=== PATIENT | male | born 1950 | race Caucasian/White ===

== ENCOUNTER 2018-01-02 22:48 | Observation (INO) ==
[2018-01-02 23:26] LABS: Basophils % 0.3 %; Hematocrit 36.7 % (37.5-50.1); Hemoglobin 11.9 g/dL (12.9-16.9); Immature Granulocytes % 0.4 % (0-4); Lymphocytes % 13.2 %; Mean Corpuscular HGB Conc 32.4 g/dL (31.6-35.5); Mean Corpuscular Hemoglobin 29.6 pg (28.0-33.3); Mean Corpuscular Volume 91.3 fL (83.0-100.0); Mean Platelet Volume 9.5 fL (9.4-12.4); Monocytes # 0.7 K/mcL (0.0-1.3); Neutrophils # 5.5 K/mcL (1.6-8.9); Platelet Count 112 K/mcL (140-400); Red Blood Count 4.02 M/mcL (4.19-5.50); Red Cell Distribution Width 13.6 % (11.5-14.5); Segmented Neutrophils % 76.1 %
--- NOTE | 2018-01-02 23:29 | Emergency Department Note ---
Disposition Clinical Impression: VIGNESH (acute kidney injury), Fever of undetermined origin Dilantin toxicity Qualifiers: Encounter type: initial encounter Injury intent: accidental or unintentional Qualified Code(s): T42.0X1A - Poisoning by hydantoin derivatives, accidental (unintentional), initial encounter Disposition: Admitted As Inpatient Condition: Fair General Adult HPI - General Chief complaint: ED Fall Stated complaint: Fall Time Seen by Provider: 01/02/18 22:52 Source: patient Limitations: no limitations Nursing Notes Reviewed: Yes Vital Signs Reviewed: Yes - History of Present Illness HPI Narrative: Patient is a 67-year-old male with history of epilepsy who presents the emergency department status post fall. 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 Patient denies hitting his head or any loss of consciousness. He states he did not have a seizure and has been taking his medication as directed. Otherwise has no complaints including headache, nausea, vomiting, abdominal pain, chest pain, shortness of breath, dysuria, hematuria, dizziness, numbness, tingling, fever, chills, or weakness. Pain Scale: 0 - Related Data Allergies Allergy/AdvReac Type Severity Reaction Status Date / Time No Known Allergies Allergy Verified 01/02/18 22:53 Constitutional: Denies: fever, chills, weakness Cardiovascular: Denies: chest pain, palpitations, dyspnea on exertion, orthopnea, edema, syncope Respiratory: Denies: cough, dyspnea, wheezes, hemoptysis, sputum production Gastrointestinal: Denies: abdominal pain, nausea, vomiting, diarrhea, constipation Genitourinary: Denies: urgency, dysuria, frequency, hematuria Musculoskeletal: Denies: back pain, neck pain, arthralgia, myalgia Neurological: Reports: confusion. Denies: headache, weakness, numbness, paresthesias, abnormal gait, vertigo Psychiatric: Denies: anxiety, depression Endocrine: Denies: fatigue Past Medical History - Past Medical History Attestation: Yes The following information was validated with the patient. Source: patient Medical history: Reports: hypertension, seizures, other Psychiatric history: Reports: no psych history - Social History Smoking Status: Former smoker Smokeless Tobacco Status: No Alcohol use: Reports: none Drug use: Reports: none Physical Exam - General Limitations: no limitations, altered mental status General appearance: alert - Head Head exam: atraumatic, normocephalic - Eye Eye exam: Present: normal appearance, PERRL, EOMI. Absent: scleral icterus, conjunctival injection - ENT ENT exam: normal exam - Neck Neck exam: Present: trachea midline. Absent: tenderness, meningismus - Chest Chest inspection: Present: normal inspection, symmetric chest wall rise. Absent: tenderness - Respiratory Respiratory exam: Present: normal lung sounds bilaterally. Absent: respiratory distress, wheezes, stridor, accessory muscle use - Cardiovascular Cardiovascular exam: Present: regular rate, normal rhythm, normal heart sounds - Abdominal Exam Abdominal exam: Present: soft, Non-Tender. Absent: distention, guarding, rebound, rigidity - Extremities Exam Extremities exam: Present: normal inspection. Absent: pedal edema - Back Exam Back exam: Present: normal inspection - Neurological Exam Neurological exam: Present: alert - Expanded Neurological Exam Patient oriented to: Present: place, time Speech: Present: fluid speech Cranial nerves: EOM function (II, III, IV, ): Normal, facial sensation (V): Normal, facial palsy (VII): Normal, gag reflex (IX): Normal, spinal accessory function (XI): Normal, tongue deviation (XII): Normal Cerebellar function: finger to nose: Normal Motor strength - LUE: 5/5 Motor strength - RUE: 5/5 Motor strength - LLE: 5/5 Motor strength - RLE: 5/5 Coma Scale Eye Opening: Spontaneous Coma Scale Motor Response: Obeys Commands Coma Scale Verbal Response: Oriented Coma Scale Total: 15 - Expanded Psychiatric Exam Expanded psych exam: Present: other (labile mood, intermittently joking and laughing then crying without explanation) - Skin Skin exam: Present: warm, dry, intact Course Vital Signs Temperature 102.8 F H 01/02/18 22:53 Pulse Rate 93 01/02/18 22:53 Respiratory Rate 20 01/02/18 22:53 Blood Pressure 99/60 01/02/18 22:53 O2 Sat by Pulse Oximetry 98 01/02/18 22:53 Temperature 101 F H 01/03/18 02:49 Pulse Rate 91 01/03/18 02:49 Respiratory Rate 18 01/03/18 02:49 Blood Pressure 113/68 01/03/18 02:49 O2 Sat by Pulse Oximetry 95 01/03/18 02:50 Oxygen Delivery Oxygen Delivery Room Air Medical Decision Making - MDM Narrative Medical decision making narrative: 67-year-old male with history of epilepsy. On initial exam the patient is confused and patient's family confirms that he is not at his baseline mentation. He is also febrile to 102. Given his confusion obtained a CT head as well as lab work including CBC, BMP, LFTs, EKG, urinalysis, chest XR, lactate and Dila ntin level. CBCs shows slight anemia, elevation this creatinine to 1.5 with a normal lactate. Urinalysis does not show acute infection. EKG unremarkable. Chest x-ray also reveals no acute process. CT head negative for acute bleed or ischemic changes. Dilantin level elevated at 30. 1 L fluid bolus given along with Tylenol. Given his continued altered mental status as well as acute kidney injury and fever of unknown source will admit the patient for continued evaluation. Blood cultures obtained and pending. Discussed case with Dr. Vidal, hospitalist who will admit the patient. Patient agrees with and understands course of treatment plan including plan for admission. All questions answered. - Medical Records Medical records reviewed: Yes I reviewed the patient's medical records. - Lab Data Lab results reviewed: Yes I reviewed the patient's lab results. Result diagrams: 01/02/18 23:08 01/02/18 23:08 Lab Results 01/02/18 01/02/18 01/02/18 Range/Units 23:08 23:08 23:08 WBC 7.2 (4.3-11.1) K/mcL RBC 4.02 L (4.19-5.50) M/mcL Hgb 11.9 L (12.9-16.9) g/dL Hct 36.7 L (37.5-50.1) % MCV 91.3 (83.0-100.0) fL MCH 29.6 (28.0-33.3) pg MCHC 32.4 (31.6-35.5) g/dL RDW 13.6 (11.5-14.5) % Plt Count 112 L (140-400) K/mcL MPV 9.5 (9.4-12.4) fL Immature Gran % 0.4 (0-4) % Seg Neutrophils % 76.1 % Lymphocytes % 13.2 % Monocytes % 10.0 % Eosinophils % 0.0 % Basophils % 0.3 % Neutrophils # 5.5 (1.6-8.9) K/mcL Lymphocytes # 1.0 (0.6-4.6) K/mcL Monocytes # 0.7 (0.0-1.3) K/mcL Eosinophils # 0.0 (0.0-0.6) K/mcL Basophils # 0.0 (0.0-0.2) K/mcL Sodium 135 L (136-145) mEq/L Potassium 4.6 (3.5-5.1) mEq/L Chloride 105 (98-107) mEq/L Carbon Dioxide 23 (23-29) mEq/L BUN 36 H (8-23) mg/dL Creatinine 1.51 H (0.70-1.30) mg/dL Est GFR ( Amer) 56 L (> 60) Est GFR (Non-Af Amer) 46 L (> 60) BUN/Creatinine Ratio 24 (6-26) Glucose 172 H (70-105) mg/dL Calculated Osmolality 292 (280-300) Lactic Acid 1.1 (0.5-2.2) mmol/L Calcium 8.3 L (8.6-10.3) mg/dL Total Bilirubin 0.4 (0.3-1.0) mg/dL Direct Bilirubin 0.1 (0.0-0.2) mg/dL Indirect Bilirubin 0.3 (0.0-1.2) mg/dL AST 22 (13-39) Units/L ALT 17 (7-52) Units/L Alkaline Phosphatase 103 (34-104) Units/L Creatine Kinase 246 H (30-223) Units/L Serum Total Protein 7.1 (6.4-8.9) g/dL Albumin 4.0 (3.5-5.7) g/dL Globulin 3.1 (2.4-3.5) g/dL Albumin/Globulin Ratio 1.3 (1.1-2.2) Urine Color (Yellow) Urine Clarity (Clear) Urine pH (5.0-8.0) pH Units Ur Specific [place] (1.010-1.025) Urine Protein (Neg-Trace) mg/dL Urine Glucose (UA) (Normal) mg/dL Urine Ketones (Negative) mg/dL Urine Blood (Negative) Urine Nitrite (Negative) Urine Bilirubin (Negative) Urine Urobilinogen (Normal) mg/dL Ur Leukocyte Esterase (Negative) Urine Microscopic RBC (0-3) per hpf Urine Microscopic WBC (0-3) per hpf Ur Squamous Epith Cells (None-Few) per lpf Urine Bacteria (None-Few) per hpf Hyaline Casts (None-Few) per lpf Ur Culture Indicated? (NO) Phenytoin 30.9 H (10.0-20.0) mcg/mL 01/03/18 Range/Units 00:33 WBC (4.3-11.1) K/mcL RBC (4.19-5.50) M/mcL Hgb (12.9-16.9) g/dL Hct (37.5-50.1) % MCV (83.0-100.0) fL MCH (28.0-33.3) pg MCHC (31.6-35.5) g/dL RDW (11.5-14.5) % Plt Count (140-400) K/mcL MPV (9.4-12.4) fL Immature Gran % (0-4) % Seg Neutrophils % % Lymphocytes % % Monocytes % % Eosinophils % % Basophils % % Neutrophils # (1.6-8.9) K/mcL Lymphocytes # (0.6-4.6) K/mcL Monocytes # (0.0-1.3) K/mcL Eosinophils # (0.0-0.6) K/mcL Basophils # (0.0-0.2) K/mcL Sodium (136-145) mEq/L Potassium (3.5-5.1) mEq/L Chloride (98-107) mEq/L Carbon Dioxide (23-29) mEq/L BUN (8-23) mg/dL Creatinine (0.70-1.30) mg/dL Est GFR ( Amer) (> 60) Est GFR (Non-Af Amer) (> 60) BUN/Creatinine Ratio (6-26) Glucose (70-105) mg/dL Calculated Osmolality (280-300) Lactic Acid (0.5-2.2) mmol/L Calcium (8.6-10.3) mg/dL Total Bilirubin (0.3-1.0) mg/dL Direct Bilirubin (0.0-0.2) mg/dL Indirect Bilirubin (0.0-1.2) mg/dL AST (13-39) Units/L ALT (7-52) Units/L Alkaline Phosphatase (34-104) Units/L Creatine Kinase (30-223) Units/L Serum Total Protein (6.4-8.9) g/dL Albumin (3.5-5.7) g/dL Globulin (2.4-3.5) g/dL Albumin/Globulin Ratio (1.1-2.2) Urine Color Yellow (Yellow) Urine Clarity Clear (Clear) Urine pH 5.0 (5.0-8.0) pH Units Ur Specific [place] 1.026 H (1.010-1.025) Urine Protein Negative (Neg-Trace) mg/dL Urine Glucose (UA) Normal (Normal) mg/dL Urine Ketones Negative (Negative) mg/dL Urine Blood Trace H (Negative) Urine Nitrite Negative (Negative) Urine Bilirubin Negative (Negative) Urine Urobilinogen Normal (Normal) mg/dL Ur Leukocyte Esterase Negative (Negative) Urine Microscopic RBC 3-5 H (0-3) per hpf Urine Microscopic WBC 0-3 (0-3) per hpf Ur Squamous Epith Cells Few (None-Few) per lpf Urine Bacteria None Seen (None-Few) per hpf Hyaline Casts None Seen (None-Few) per lpf Ur Culture Indicated? NO (NO) Phenytoin (10.0-20.0) mcg/mL - Radiology Data Radiology results reviewed: Yes I reviewed the patient's radiology results. Chest X-Ray 01/02/18 23:06 IMPRESSION: No acute disease. D/ / Shmuel Horne MD / Shmuel Horne MD Interpreting Provider: Shmuel Horen MD Head CT 01/02/18 23:06 IMPRESSION: No acute intracranial abnormality. Mild chronic small vessel ischemic disease. Small old left cerebellar remote lacunar infarct. D/ / Baljit Sánchez / Baljit Sessions Interpreting Provider: Baljit Sessions - EKG Data EKG #1 EKG attestation: Yes I reviewed and interpreted this EKG. EKG results narrative: Normal sinus rhythm rate of 92. Irritable, MT interval 219. QRS 96 QT 340 QTC 421. Left axis deviation. Left ventricular hypertrophy. T-wave inversions in leads V3 through V6 without evidence of ST elevation. No prior EKG available for comparison.
[2018-01-02] MEDS ORDERED: 0.9 % Sodium Chloride 1,000 ML IVC ONE (23:40)
[2018-01-02 23:43] LABS: Albumin/Globulin Ratio 1.3 (1.1-2.2); Bilirubin,Direct 0.1 mg/dL (0.0-0.2); Bilirubin,Indirect 0.3 mg/dL (0.0-1.2); Bilirubin,Total 0.4 mg/dL (0.3-1.0); Calcium 8.3 mg/dL (8.6-10.3); Globulin 3.1 g/dL (2.4-3.5); Potassium 4.6 mEq/L (3.5-5.1); Total Protein 7.1 g/dL (6.4-8.9)
[2018-01-02 23:53] LABS: Phenytoin (Dilantin) 30.9 mcg/mL (10.0-20.0)
[2018-01-03 00:41] LABS: Bilirubin,Urine Negative (Negative); Blood,Urine Trace (Negative); Clarity,Urine Clear (Clear); Color,Urine Yellow (Yellow); Glucose,Urine (UA) Normal (Normal); Ketones,Urine Negative (Negative); Leukocyte Esterase,Urine Negative (Negative); Nitrite,Urine Negative (Negative); Protein,Urine Negative (Neg-Trace); Specific Gravity,Urine 1.026 (1.010-1.025); Urobilinogen,Urine Normal (Normal)
[2018-01-03 00:42] LABS: Bacteria,Urine None Seen per hpf (None-Few); Hyaline Casts,Urine None Seen per lpf (None-Few); Squamous Epithelial Cell,Urine Few per lpf (None-Few); WBC,Urine 0-3 per hpf (0-3)
--- NOTE | 2018-01-03 00:43 | Emergency Department Note ---
Disposition Clinical Impression: VIGNESH (acute kidney injury), Fever of undetermined origin Dilantin toxicity Qualifiers: Encounter type: initial encounter Injury intent: accidental or unintentional Qualified Code(s): T42.0X1A - Poisoning by hydantoin derivatives, accidental (unintentional), initial encounter Disposition: Admitted As Inpatient Condition: Fair General Adult HPI - General Chief complaint: ED Fall Stated complaint: Fall Time Seen by Provider: 01/02/18 22:52 Source: patient Limitations: no limitations, altered mental status Nursing Notes Reviewed: Yes Vital Signs Reviewed: Yes - History of Present Illness Pain Scale: 0 - Related Data Allergies Allergy/AdvReac Type Severity Reaction Status Date / Time No Known Allergies Allergy Verified 01/02/18 22:53 Constitutional: Denies: fever, chills, weakness Cardiovascular: Denies: chest pain, palpitations, dyspnea on exertion, orthopnea, edema, syncope Respiratory: Denies: cough, dyspnea, wheezes, hemoptysis, sputum production Gastrointestinal: Denies: abdominal pain, nausea, vomiting, diarrhea, constipation Genitourinary: Denies: urgency, dysuria, frequency, hematuria Musculoskeletal: Denies: back pain, neck pain, arthralgia, myalgia Neurological: Reports: confusion. Denies: headache, weakness, numbness, paresthesias, abnormal gait, vertigo Psychiatric: Denies: anxiety, depression Endocrine: Denies: fatigue Past Medical History - Past Medical History Medical history: Reports: hypertension, seizures, other Psychiatric history: Reports: no psych history - Social History Smoking Status: Former smoker Smokeless Tobacco Status: No Alcohol use: Reports: none Drug use: Reports: none Physical Exam - General Limitations: no limitations, altered mental status General appearance: alert Course Vital Signs Temperature 102.8 F H 01/02/18 22:53 Pulse Rate 93 01/02/18 22:53 Respiratory Rate 20 01/02/18 22:53 Blood Pressure 99/60 01/02/18 22:53 O2 Sat by Pulse Oximetry 98 01/02/18 22:53 Temperature 101.7 F H 01/03/18 03:46 Pulse Rate 87 01/03/18 03:46 Respiratory Rate 17 01/03/18 03:46 Blood Pressure 112/67 01/03/18 03:46 O2 Sat by Pulse Oximetry 95 01/03/18 03:46 Oxygen Delivery Oxygen Delivery Room Air Medical Decision Making - Medical Records Medical records reviewed: Yes I reviewed the patient's medical records. - Lab Data Lab results reviewed: Yes I reviewed the patient's lab results. Result diagrams: 01/02/18 23:08 01/02/18 23:08 Lab Results 01/02/18 01/02/18 01/02/18 Range/Units 23:08 23:08 23:08 WBC 7.2 (4.3-11.1) K/mcL RBC 4.02 L (4.19-5.50) M/mcL Hgb 11.9 L (12.9-16.9) g/dL Hct 36.7 L (37.5-50.1) % MCV 91.3 (83.0-100.0) fL MCH 29.6 (28.0-33.3) pg MCHC 32.4 (31.6-35.5) g/dL RDW 13.6 (11.5-14.5) % Plt Count 112 L (140-400) K/mcL MPV 9.5 (9.4-12.4) fL Immature Gran % 0.4 (0-4) % Seg Neutrophils % 76.1 % Lymphocytes % 13.2 % Monocytes % 10.0 % Eosinophils % 0.0 % Basophils % 0.3 % Neutrophils # 5.5 (1.6-8.9) K/mcL Lymphocytes # 1.0 (0.6-4.6) K/mcL Monocytes # 0.7 (0.0-1.3) K/mcL Eosinophils # 0.0 (0.0-0.6) K/mcL Basophils # 0.0 (0.0-0.2) K/mcL Sodium 135 L (136-145) mEq/L Potassium 4.6 (3.5-5.1) mEq/L Chloride 105 (98-107) mEq/L Carbon Dioxide 23 (23-29) mEq/L BUN 36 H (8-23) mg/dL Creatinine 1.51 H (0.70-1.30) mg/dL Est GFR ( Amer) 56 L (> 60) Est GFR (Non-Af Amer) 46 L (> 60) BUN/Creatinine Ratio 24 (6-26) Glucose 172 H (70-105) mg/dL Calculated Osmolality 292 (280-300) Lactic Acid 1.1 (0.5-2.2) mmol/L Calcium 8.3 L (8.6-10.3) mg/dL Total Bilirubin 0.4 (0.3-1.0) mg/dL Direct Bilirubin 0.1 (0.0-0.2) mg/dL Indirect Bilirubin 0.3 (0.0-1.2) mg/dL AST 22 (13-39) Units/L ALT 17 (7-52) Units/L Alkaline Phosphatase 103 (34-104) Units/L Creatine Kinase 246 H (30-223) Units/L Serum Total Protein 7.1 (6.4-8.9) g/dL Albumin 4.0 (3.5-5.7) g/dL Globulin 3.1 (2.4-3.5) g/dL Albumin/Globulin Ratio 1.3 (1.1-2.2) Urine Color (Yellow) Urine Clarity (Clear) Urine pH (5.0-8.0) pH Units Ur Specific [place] (1.010-1.025) Urine Protein (Neg-Trace) mg/dL Urine Glucose (UA) (Normal) mg/dL Urine Ketones (Negative) mg/dL Urine Blood (Negative) Urine Nitrite (Negative) Urine Bilirubin (Negative) Urine Urobilinogen (Normal) mg/dL Ur Leukocyte Esterase (Negative) Urine Microscopic RBC (0-3) per hpf Urine Microscopic WBC (0-3) per hpf Ur Squamous Epith Cells (None-Few) per lpf Urine Bacteria (None-Few) per hpf Hyaline Casts (None-Few) per lpf Ur Culture Indicated? (NO) Phenytoin 30.9 H (10.0-20.0) mcg/mL 01/03/18 Range/Units 00:33 WBC (4.3-11.1) K/mcL RBC (4.19-5.50) M/mcL Hgb (12.9-16.9) g/dL Hct (37.5-50.1) % MCV (83.0-100.0) fL MCH (28.0-33.3) pg MCHC (31.6-35.5) g/dL RDW (11.5-14.5) % Plt Count (140-400) K/mcL MPV (9.4-12.4) fL Immature Gran % (0-4) % Seg Neutrophils % % Lymphocytes % % Monocytes % % Eosinophils % % Basophils % % Neutrophils # (1.6-8.9) K/mcL Lymphocytes # (0.6-4.6) K/mcL Monocytes # (0.0-1.3) K/mcL Eosinophils # (0.0-0.6) K/mcL Basophils # (0.0-0.2) K/mcL Sodium (136-145) mEq/L Potassium (3.5-5.1) mEq/L Chloride (98-107) mEq/L Carbon Dioxide (23-29) mEq/L BUN (8-23) mg/dL Creatinine (0.70-1.30) mg/dL Est GFR ( Amer) (> 60) Est GFR (Non-Af Amer) (> 60) BUN/Creatinine Ratio (6-26) Glucose (70-105) mg/dL Calculated Osmolality (280-300) Lactic Acid (0.5-2.2) mmol/L Calcium (8.6-10.3) mg/dL Total Bilirubin (0.3-1.0) mg/dL Direct Bilirubin (0.0-0.2) mg/dL Indirect Bilirubin (0.0-1.2) mg/dL AST (13-39) Units/L ALT (7-52) Units/L Alkaline Phosphatase (34-104) Units/L Creatine Kinase (30-223) Units/L Serum Total Protein (6.4-8.9) g/dL Albumin (3.5-5.7) g/dL Globulin (2.4-3.5) g/dL Albumin/Globulin Ratio (1.1-2.2) Urine Color Yellow (Yellow) Urine Clarity Clear (Clear) Urine pH 5.0 (5.0-8.0) pH Units Ur Specific [place] 1.026 H (1.010-1.025) Urine Protein Negative (Neg-Trace) mg/dL Urine Glucose (UA) Normal (Normal) mg/dL Urine Ketones Negative (Negative) mg/dL Urine Blood Trace H (Negative) Urine Nitrite Negative (Negative) Urine Bilirubin Negative (Negative) Urine Urobilinogen Normal (Normal) mg/dL Ur Leukocyte Esterase Negative (Negative) Urine Microscopic RBC 3-5 H (0-3) per hpf Urine Microscopic WBC 0-3 (0-3) per hpf Ur Squamous Epith Cells Few (None-Few) per lpf Urine Bacteria None Seen (None-Few) per hpf Hyaline Casts None Seen (None-Few) per lpf Ur Culture Indicated? NO (NO) Phenytoin (10.0-20.0) mcg/mL - Radiology Data Radiology results reviewed: Yes I reviewed the patient's radiology results. Chest X-Ray 01/02/18 23:06 IMPRESSION: No acute disease. D/ / Shmuel Horne MD / Shmuel Horne MD Interpreting Provider: Shmuel Horne MD Head CT 01/02/18 23:06 IMPRESSION: No acute intracranial abnormality. Mild chronic small vessel ischemic disease. Small old left cerebellar remote lacunar infarct. D/ / Baljit Sánchez / Baljit Sánchez Interpreting Provider: Baljit Sánchez - EKG Data EKG #1 EKG attestation: Yes I reviewed and interpreted this EKG. EKG results narrative: EKG shows a normal sinus rhythm with ventricular rate of 92. Nonspecific ST and T-wave changes. Attestation Statement - Attestation Attestation: I, Luigi Brambila MD, personally evaluated this patient and discussed their management with the resident physician. I reviewed the resident's note and agree with the documented findings, medical decision making, and plan of care. 67-year-old male presents to the emergency department by EMS after he fell while at work this evening. 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 Tonight he lost his balance and fell twice while at work. He did not trip. He denies any injury from the fall. On arrival here in the emergency department the patient is awake and alert but is somewhat confused. When family arrived they report that he is deathly confused from his baseline. He also was found to be febrile on arrival. He was not aware he had a fever. He has no specific complaints. He denies any headache or earache or sore throat. No rash or stiff neck. No chest pain. No cough or shortness of breath. He denies any abdominal pain. No nausea or vomiting. No diarrhea. No GI bleed symptoms. No UTI symptoms. He denies any pain in the extremities. No back pain. On examination patient is a well-developed well-nourished elderly male in no acute distress. He is alert and cooperative and oriented but does seem somewhat confused. There is no cyanosis or diaphoresis. Head is atraumatic. There is mild lateral nystagmus. Neck is supple and nontender with full range of motion. Touches chin to chest without discomfort. Throat is clear with no injection or exudate and mucous membranes are moist. Chest is nontender to palpation. Breath sounds are clear and equal bilaterally. Heart regular rate and rhythm. Abdomen is soft and nontender with normal bowel sounds. No gross focal neurological deficits. Labs reviewed. Patient found to have Dilantin toxicity with a Dilantin level of 30. He also had some acute kidney injury with an increase in his creatinine to 1.51. Highest previous level was 1.31. Chest x-ray negative. Urinalysis negative. No source found for the fever which could possibly be related to the Dilantin toxicity. Head CT negative. The hospitalist, Dr. Oliva, was consulted and accepted admission of the patient.
[2018-01-03] MEDS ORDERED: Acetaminophen 325 MG TABLET PO ONE (01:01)
[2018-01-03] MEDS ORDERED: traMADol 50 MG TABLET PO PRN (02:49)
[2018-01-03] MEDS ORDERED: Ringers Solution, Lactated 1,000 ML IVC SCH (03:00)
--- NOTE | 2018-01-03 03:37 | Internal Med History&Physical ---
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 It is reported that he slipped on soap in the bathroom, falling backwards onto his buttocks but without hitting his head or suffering LOC. No seizure episode reported. He reports adherence with his medications. EMS was called as he did not feel well. In the ER, his noticed that he seemed a bit confused and not at his baseline mental status. In the ER he was noted persistently febrile >102F in spite of APAP given. Blood work done was grossly unrevealing other than a slight elevation in serum creatinine and a high phenytoin level. Head CT negative for acute processes. Blood cultures were obtained but no antibiotics started. Fluids were given and remained under monitoring. Due to the unclear etiology of fever, VIGNESH and altered mental status, it is decided he remain under observation. The patient reports feeling well although there might be an element of confabulation to this. He denies any complaints although his says he does not appear normal. He denies having chills, headache, dizziness, chest pain, dyspnea, sore throat, rhinorhea and abdominal pain. No recent travels. His reports that he fell down at home 3 days ago and 2 days ago were with a group of young children but none of whom appeared ill. Past Med Surg Social Fam HX - Past Medical History Medical history: hypertension, seizures, other Additional medical history: epilepsy Psychiatric history: no psych history - Past Surgical History Surgical History: no surgical history, non-contributory - Social History Smoking Status: Former smoker Smokeless Tobacco Status: No Alcohol use: none Drug use: none - Family History Father History Unknown: Yes Internal Medicine - H&P: Meds Allergy/AdvReac Type Severity Reaction Status Date / Time No Known Allergies Allergy Verified 01/02/18 22:53 All Systems PM: A 10-system review of systems was performed and is negative for pertinent findin gs except as documented above in the HPI. Family history obtained and found non-contributory. - Constitutional Vitals: Temp Pulse Resp BP Pulse Ox 101 F H 91 18 113/68 95 01/03/18 02:49 01/03/18 02:49 01/03/18 02:49 01/03/18 02:49 01/03/18 02:50 Exam: Vitals: Reviewed General: Well-developed and well-appearing in no acute distress. Speech occasionally in mumbles. Skin: Warm and supple. HEENT: Moist mucous membranes. No conjunctivae pallor. Right-sided horizontal nystagmus is present. EOMI. PERRLA. Neck: No lymphadenopathy. No JVD. No carotid bruits. No palpable thyroid. Chest: Normal thoracic expansion. Normal breath sounds. Clear to auscultation. Heart: Normal S1 & S2; rhythmic. No rubs or murmurs. Abdomen: soft and non-tender to palpation. No peritoneal reaction. Extremities: No clubbing, cyanosis or edema. No calf tenderness. Normal distal pulses. Neurological: Awake, alert and oriented to person, place and time. No focal deficits. No nuchal rigidity or any other signs of meningismus. Psych: Affect appropriate. Internal Med - H&P Results - Labs CBC & Chem 7: 01/02/18 23:08 01/02/18 23:08 Labs: Short CBC 01/02/18 Range/Units 23:08 WBC 7.2 (4.3-11.1) K/mcL Hgb 11.9 L (12.9-16.9) g/dL Hct 36.7 L (37.5-50.1) % Plt Count 112 L (140-400) K/mcL Neutrophils # 5.5 (1.6-8.9) K/mcL BMP 01/02/18 23:08 Sodium 135 L Potassium 4.6 Chloride 105 Carbon Dioxide 23 BUN 36 H Creatinine 1.51 H Glucose 172 H Calcium 8.3 L Liver Function 01/02/18 Range/Units 23:08 Total Bilirubin 0.4 (0.3-1.0) mg/dL Direct Bilirubin 0.1 (0.0-0.2) mg/dL AST 22 (13-39) Units/L ALT 17 (7-52) Units/L Alkaline Phosphatase 103 (34-104) Units/L Albumin 4.0 (3.5-5.7) g/dL Urine 01/03/18 Range/Units 00:33 Urine Color Yellow (Yellow) Urine Clarity Clear (Clear) Urine pH 5.0 (5.0-8.0) pH Units Ur Specific [place] 1.026 H (1.010-1.025) Urine Protein Negative (Neg-Trace) mg/dL Urine Glucose (UA) Normal (Normal) mg/dL - Impressions ITS Impressions Chest X-Ray 01/02/18 23:06 IMPRESSION: No acute disease. D/ / Shmuel Horne MD / Shmuel Horne MD Interpreting Provider: Shmuel Horne MD Head CT 01/02/18 23:06 IMPRESSION: No acute intracranial abnormality. Mild chronic small vessel ischemic disease. Small old left cerebellar remote lacunar infarct. D/ / Baljit Sessions / Baljit Sessions Interpreting Provider: Baljit Sessions - Assessment and plan (1) Fever Current Visit: Yes Status: Acute Assessment and plan: Unclear etiology. No signs of skin/soft tissue infection, UTI, pneumonia or clinical signs of bacterial meningitis. Could it be a viral or drug-induced meningitis? Possible. Elevated phenytoin levels have been seen to cause fever as well. Will continue IVF, follow blood cultures, rule out influenza with swab, brain MRI with contrast as meningeal enhancement would be suggestive of a meningitis and therefore would warrant a lumbar puncture. No indication for antimicrobials at this time. Qualifiers: Fever type: unspecified Qualified Code(s): R50.9 - Fever, unspecified (2) Acute encephalopathy Current Visit: Yes Status: Acute Assessment and plan: No focal deficits concerning for infarction and negative initial head CT. Worsening coordination, unsteady gait, slurred speech, nystagmus, lethargy and confusion are seen with elevated phenytoin levels and could be explicative of his condition however being coupled with fever warrants a rule out of infectious etiologies. No other identified metabolic causes are noted. Will send urine tox screen. Patient and deny alcohol use. Brain MRI as indicated above and if persistent alteration or meningeal enhancement, lumbar puncture should be performed. (3) Elevated Dilantin level Current Visit: Yes Status: Acute Assessment and plan: Will place on IVF and recheck level in the morning. (4) Epilepsy Current Visit: Yes Status: Acute Assessment and plan: No report of seizure episode thus far. Will place on precautions and hold AEDs for now. reports he has not seized in 20 years. Qualifiers: Epilepsy type: unspecified Intractability: not intractable Status epilepticus: without status epilepticus Qualified Code(s): G40.909 - Epilepsy, unspecified, not intractable, without status epilepticus (5) VIGNESH (acute kidney injury) Current Visit: Yes Status: Acute Assessment and plan: Will place on IVF and recheck BMP in the morning. Possibly related to medication injury as well as low volemia from poor oral intake. (6) DVT prophylaxis Current Visit: Yes Status: Acute Assessment and plan: SubQ heparin. - Time Spent With Patient Total time spent is greater than 50% in coordination of care (as documented) at patient's floor/unit and/or counseling patient: Greater than 35 minutes
[2018-01-03] MEDS ORDERED: Gadolinium Contrast Agent (WT Based) IV PRN (04:13)
[2018-01-03] MEDS: *HR* Heparin 5,000 UNIT/ML VIAL SQ SCH ×2 (06:35→17:38)
[2018-01-03 06:41] LABS: BUN/Creatinine Ratio 24 (6-26); Blood Urea Nitrogen 32 mg/dL (8-23); Calcium 8.2 mg/dL (8.6-10.3); Carbon Dioxide 23 mEq/L (23-29); Chloride 107 mEq/L (98-107); Glucose 116 mg/dL (70-105); Osmolality,Calculated 292 (280-300); Phenytoin (Dilantin) 26.5 mcg/mL (10.0-20.0); Potassium 4.9 mEq/L (3.5-5.1); Sodium 137 mEq/L (136-145); eGFR For Non-African Americans 54 (> 60)
[2018-01-03 06:44] LABS: Amphetamine Screen,Urine Negative ng/mL (Cutoff=1000); Barbiturate Screen,Urine Positive ng/mL (Cutoff=200); Benzodiazepines Screen,Urine Negative ng/mL (Cutoff=300); Cannabinoid Screen,Urine Negative ng/mL (Cutoff = 50); Cocaine Screen,Urine Negative ng/mL (Cutoff= 300); Opiate Screen,Urine Negative ng/mL (Cutoff=300); Phencyclidine Screen,Urine Negative ng/mL (Cutoff=25)
[2018-01-03] MEDS: Acetaminophen 325 MG TABLET PO PRN ×2 (08:06→20:06)
[2018-01-03] MEDS: PHENobarbital 32.4 MG TABLET PO SCH ×2 (15:30→17:38)
[2018-01-03] MEDS ORDERED: 0.9 % Sodium Chloride 1,000 ML IVC SCH (15:45)
[2018-01-03] MEDS: Lisinopril 20 MG TABLET PO SCH (16:08)
[2018-01-04 04:50] LABS: Hemoglobin 11.3 g/dL (12.9-16.9)
[2018-01-04 04:52] LABS: Basophils % 0.3 %; Hematocrit 33.8 % (37.5-50.1); Immature Granulocytes % 0.5 % (0-4); Immature Platelets 1.4 % (1.1-6.1); Lymphocytes # 1.1 K/mcL (0.6-4.6); Lymphocytes % 19.4 %; Mean Corpuscular HGB Conc 33.4 g/dL (31.6-35.5); Mean Corpuscular Hemoglobin 29.9 pg (28.0-33.3); Mean Corpuscular Volume 89.4 fL (83.0-100.0); Mean Platelet Volume 9.6 fL (9.4-12.4); Monocytes # 0.7 K/mcL (0.0-1.3); Monocytes % 11.4 %; Red Blood Count 3.78 M/mcL (4.19-5.50); Red Cell Distribution Width 13.5 % (11.5-14.5); Segmented Neutrophils % 68.4 %
[2018-01-04 04:56] LABS: Platelet Count 95 K/mcL (140-400)
[2018-01-04 05:10] LABS: BUN/Creatinine Ratio 18 (6-26); Blood Urea Nitrogen 26 mg/dL (8-23); Calcium 7.7 mg/dL (8.6-10.3); Carbon Dioxide 20 mEq/L (23-29); Chloride 106 mEq/L (98-107); Glucose 104 mg/dL (70-105); Magnesium 1.4 mg/dL (1.6-2.6); Osmolality,Calculated 285 (280-300); Phenytoin (Dilantin) 19.3 mcg/mL (10.0-20.0); Sodium 135 mEq/L (136-145); eGFR For Non-African Americans 50 (> 60)
[2018-01-04 05:21] LABS: Platelet Estimate Decreased (Normal)
[2018-01-04] MEDS: *HR* Heparin 5,000 UNIT/ML VIAL SQ SCH ×2 (05:46→17:18)
[2018-01-04] MEDS: PHENobarbital 32.4 MG TABLET PO SCH ×2 (09:26→17:18)
[2018-01-04] MEDS: Acetaminophen 325 MG TABLET PO PRN (09:26)
[2018-01-04] MEDS: Lisinopril 20 MG TABLET PO SCH (09:34)
--- NOTE | 2018-01-04 20:56 | Internal Med Progress Note ---
Hospitalist Progress Note - Encounter Date of Encounter: 01/04/18 Time of Encounter: 19:00 - Subjective Interval History: SUBJECTIVE: The patient feels good. He has good appetite; denies abdominal pain, nausea and vomiting. He ambulates on his own; his gait seems to be steady. The only concern is his fever; had to 101.8 around 7 AM. He did not have any more fever after that. Denies difficulty breathing, coughing and wheezing. He seems to have normal urination. OBJECTIVE: Skin: Free of rash and discoloration. ENMT: Oral/pharyngeal mucosa is normal in appearance. Eyes: Sclera is white. There is no discharge from eyes. Respiratory: Normal breath sounds; no crackles or wheezes. CV: Heart is regular; no gallop or murmur. GI: Abdomen is soft and not tender. There is no palpable mass or visceromegaly. Neuro: There is no focal deficits. ADDITIONAL DATA: I repeated chest x-ray today afternoon; it shows normal findings. His UA was checked yesterday it was normal. Hemoglobin is 11.3 with WBC of 5.9 thousand. Platelet count is 95,000; 112,000 yesterday. He has normal electrolytes. Creatinine is 1.42; his baseline. His Dilantin level is 19.3 (normal). His phenobarbital level is 20 (normal). ASSESSMENT AND PLAN: Acute encephalopathy, basically resolved. Likely secondary to elevated Dilantin level. I will restart his Dilantin at lower dose of 300 mg daily. Fever. I feel, that he has drug fever. I will be watching him for the next 24 hours. I will consult infectious diseases, if needed. Mild thrombocytopenia. He had normal platelet count in 2016. We will repeat the CBC in the morning. Epilepsy. Under control. We will continue lower dose Dilantin and phenobarbital. Hypertensive renal disease with CKD stage III. Under control. We will continue Zestril and Lozol. DISPOSITION: Xxxxx - Exam Vitals: Temp Pulse Resp BP Pulse Ox 98.0 F 84 18 118/78 96 01/04/18 15:48 01/04/18 15:48 01/04/18 15:48 01/04/18 15:48 01/04/18 15:48 Exam: xx - Assessment and Plan (1) Acute encephalopathy Current Visit: Yes Status: Acute (2) Fever Current Visit: Yes Status: Acute (3) Elevated Dilantin level Current Visit: Yes Status: Acute (4) Epilepsy Current Visit: Yes Status: Acute (5) Hypertensive renal disease with renal failure Current Visit: Yes Status: Chronic - Time Spent with Patient Total time spent is greater than 50% in coordination of care (as documented) at patient's floor/unit and/or counseling patient: Internal Medicine: Result - Labs CBC & Chem 7: 01/04/18 04:17 01/04/18 04:17 Labs: Short CBC 01/04/18 Range/Units 04:17 WBC 5.9 (4.3-11.1) K/mcL Hgb 11.3 L (12.9-16.9) g/dL Hct 33.8 L (37.5-50.1) % Plt Count 95 L (140-400) K/mcL Neutrophils # 4.0 (1.6-8.9) K/mcL BMP 01/04/18 04:17 Sodium 135 L Potassium 4.0 Chloride 106 Carbon Dioxide 20 L BUN 26 H Creatinine 1.42 H Glucose 104 Calcium 7.7 L - Impressions Impressions Chest X-Ray 01/04/18 09:17 IMPRESSION: No acute abnormality. D/ / Hugh Savage MD / Hugh Savage MD Interpreting Provider: Hugh Savage MD Consult Discharge Plan - Plan Referrals: Claudine Robison [facility]ER [Primary Care Provider] - (2) Fever Qualifiers: Fever type: unspecified Qualified Code(s): R50.9 - Fever, unspecified (4) Epilepsy Qualifiers: Epilepsy type: unspecified Intractability: not intractable Status epilepticus: without status epilepticus Qualified Code(s): G40.909 - Epilepsy, unspecified, not intractable, without status epilepticus
[2018-01-05 05:38] LABS: Basophils % 0.4 %; Eosinophils % 0.4 %; Red Cell Distribution Width 13.4 % (11.5-14.5)
[2018-01-05 05:40] LABS: Hematocrit 32.9 % (37.5-50.1); Hemoglobin 11.2 g/dL (12.9-16.9); Immature Granulocytes % 0.6 % (0-4); Lymphocytes # 1.5 K/mcL (0.6-4.6); Lymphocytes % 32.3 %; Mean Corpuscular Volume 88.2 fL (83.0-100.0); Mean Platelet Volume 9.9 fL (9.4-12.4); Monocytes # 0.7 K/mcL (0.0-1.3); Monocytes % 14.9 %; Neutrophils # 2.4 K/mcL (1.6-8.9); Platelet Count 102 K/mcL (140-400); Red Blood Count 3.73 M/mcL (4.19-5.50); Segmented Neutrophils % 51.4 %
[2018-01-05] MEDS: *HR* Heparin 5,000 UNIT/ML VIAL SQ SCH (05:46)
[2018-01-05 05:58] LABS: BUN/Creatinine Ratio 22 (6-26); Blood Urea Nitrogen 27 mg/dL (8-23); Calcium 7.8 mg/dL (8.6-10.3); Carbon Dioxide 22 mEq/L (23-29); Chloride 106 mEq/L (98-107); Glucose 109 mg/dL (70-105); Osmolality,Calculated 286 (280-300); Potassium 3.7 mEq/L (3.5-5.1); Sodium 135 mEq/L (136-145); eGFR For Non-African Americans 59 (> 60)
[2018-01-05 06:55] VITALS: BP 113/69
[2018-01-05] MEDS: Lisinopril 20 MG TABLET PO SCH (09:06)
[2018-01-05] MEDS: PHENobarbital 32.4 MG TABLET PO SCH (09:06)
--- NOTE | 2018-01-05 10:25 | Discharge Summary ---
Orders not resulted at time of discharge: Pending orders 01/02/18 23:18 Culture,Blood [BC] Stat Date of Encounter: 01/05/18 Time of Encounter: 10:23 - Discharge Diagnosis (1) Acute encephalopathy Priority: Primary Status: Acute (2) Fever Priority: Primary Status: Acute Qualifiers: Fever type: unspecified Qualified Code(s): R50.9 - Fever, unspecified (3) Elevated Dilantin level Priority: Primary Status: Acute (4) Epilepsy Priority: Secondary Status: Chronic Qualifiers: Epilepsy type: unspecified Intractability: not intractable Status epilepticus: without status epilepticus Qualified Code(s): G40.909 - Epilepsy, unspecified, not intractable, without status epilepticus (5) Hypertensive renal disease with renal failure Priority: Secondary Status: Chronic Hospital course: HOSPITAL COURSE: The patient is a 67-year-old male with underlying seizure disorder. He was admitted shortly after he had experienced a fall; slipped on a piece of soap in his bathroom. The patient did have altered mental status at admission. Without any focal neurological deficits. CT of head/brain was obtained. It showed small old left cerebellar remote lacunar infarct. Blood testing showed normal CBC and elevated creatinine of 1.51 with the rest of CMP being normal. The patient has underlying hypertensive renal disease with CKD stage III. We offered him IV fluids. We checked his phenytoin/phenobarb level. His first phenytoin level was 30.9. It was 19.3 on the day preceding the discharge; with phenobarbital level of 20. We observed him having fever without any source of infection. It subsided shortly after we got his Dilantin level to therapeutic range. We feel, that it was drug fever. His WBC at discharge was 4.7 thousand. His altered mental status resolved. Some difficulty walking (unsteady gait) observed at admission resolved, too. CONDITION AT DISCHARGE: The patient seems to be baseline, again. Denies chest pain and difficulty breathing. Denies coughing and wheezing. Denies abdominal pain, nausea and vomiting. He has normal urination. He is walking he is a little bit wide base one; baseline for him. Skin: Free of rash and discoloration. Respiratory: Normal breath sounds with no crackles and wheezes bilaterally. CV: Heart is regular with no gallop or murmur. GI: Abdomen is flat and soft with no palpable mass or visceromegaly. Neuro exam: There is no focal deficits. SEE DISCHARGE ORDERS/MEDICATIONS.. He will be taking decreased the dose of Dilantin ER300 mg daily instead of 400 mg daily. Discharge discussed with: patient, nurse - Time Spent with Patient Total time spent providing and/or coordinating discharge services: Greater than 30 minutes (45 minutes..) - Discharge Medications Home Medications: Indapamide [Lozol] 2.5 mg PO DAILY 01/03/18 [History] Lisinopril [Zestril] 40 mg PO DAILY 01/03/18 [History] PHENobarbital [Phenobarbital] 32.4 mg PO QPM 01/03/18 [History] PHENobarbital [Phenobarbital] 64.8 mg PO QAM 01/03/18 [History] Phenytoin ER [Dilantin ER] 100 mg PO TID #0 01/05/18 [Rx] Allergies/Adverse Reactions: Allergy/AdvReac Type Severity Reaction Status Date / Time No Known Allergies Allergy Verified 01/02/18 22:53 Date of admission: 01/03/18 02:46 Primary care physician: Claudine Robison CNP Discharging clinician: Wilfrid Chacko Anticipated date of discharge: 01/05/18 - Constitutional Vitals: Temp Pulse Resp BP Pulse Ox 98.7 F 78 16 113/69 94 01/05/18 06:54 01/05/18 06:54 01/05/18 06:54 01/05/18 06:54 01/05/18 06:54 General appearance: Present: A&O X 3, answers questions appropriately Exam: xx - Patient Status Disposition: Home, Self-Care Condition: Fair - Discharge Instructions Follow Up With: Claudine Robison CNP [Primary Care Provider] - (Office will call for an appt.)
--- NOTE | 2018-01-06 19:50 | Electrocardiograph Report ---
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
== END 2018-01-05 12:12 | disposition home or self-care (01) ==
LOC: 2ANU 22:48 → EMEROOARM 22:48 → SUATTDRO 01-03 02:46 → 2ANU 01-03 03:17
PROVIDERS: ADMIT Internal Medicine; ATTEND Internal Medicine

== ENCOUNTER 2019-02-14 13:04 | Observation (INO) ==
[2019-02-14 14:18] LABS: Basophils # 0.1 K/mcL (0.0-0.2); Basophils % 0.7 %; Eosinophils % 0.3 %; Hematocrit 35.2 % (37.5-50.1); Hemoglobin 12.1 g/dL (12.9-16.9); Immature Granulocytes % 1.9 % (0-4); Lymphocytes # 2.2 K/mcL (0.6-4.6); Lymphocytes % 25.2 %; Mean Corpuscular HGB Conc 34.4 g/dL (31.6-35.5); Mean Corpuscular Hemoglobin 30.9 pg (28.0-33.3); Mean Corpuscular Volume 89.8 fL (83.0-100.0); Neutrophils # 5.2 K/mcL (1.6-8.9); Platelet Count 177 K/mcL (140-400); Red Blood Count 3.92 M/mcL (4.19-5.50); Red Cell Distribution Width 13.6 % (11.5-14.5); Segmented Neutrophils % 59.9 %; White Blood Count 8.6 K/mcL (4.3-11.1)
[2019-02-14 14:40] LABS: Calcium 8.4 mg/dL (8.6-10.3)
[2019-02-14] MEDS ORDERED: Morphine Sulfate 2 MG/ML SYRINGE IVP PRN (14:46)
[2019-02-14] MEDS ORDERED: Metoclopramide 10 MG/2 ML VIAL IVP ONE (14:46)
[2019-02-14 14:52] LABS: Troponin I 0.05 ng/mL (< 0.04)
[2019-02-14] MEDS ORDERED: 0.9 % Sodium Chloride 1,000 ML IVC ONE (15:19)
[2019-02-14] MEDS ORDERED: Aspirin 325 MG TABLET PO ONE (15:21)
[2019-02-14 15:26] LABS: Albumin/Globulin Ratio 1.4 (1.1-2.2); Bilirubin,Direct 0.1 mg/dL (0.0-0.2); Bilirubin,Indirect 0.2 mg/dL (0.0-1.0); Bilirubin,Total 0.3 mg/dL (0.3-1.0); Globulin 2.9 g/dL (2.4-3.5); Total Protein 6.9 g/dL (6.4-8.9)
[2019-02-14 15:36] LABS: Prothrombin Time 11.6 Seconds (9.4-12.1)
[2019-02-14 15:38] LABS: Activated Partial Thrombo Time 32.6 Seconds (26.0-36.0)
[2019-02-14] MEDS ORDERED: Ondansetron 4 MG/2 ML VIAL IVP PRN (16:40)
[2019-02-14] MEDS ORDERED: Acetaminophen 325 MG TABLET PO PRN (16:40)
[2019-02-14] MEDS ORDERED: Naloxone 0.4 MG/ML INJ IVP PRN (16:40)
[2019-02-14] MEDS ORDERED: Nitroglycerin 0.4 MG TAB.SUBL SL PRN (19:10)
[2019-02-14] MEDS: 0.9 % Sodium Chloride 1,000 ML IVC SCH (20:09)
[2019-02-14 22:39] LABS: Adenovirus Not Detected (Not Detect); Bordetella Pertussis Not Detected (Not Detect); Chlamydophila pneumoniae Not Detected (Not Detect); Coronavirus 229E Not Detected (Not Detect); Coronavirus HKU1 Not Detected (Not Detect); Coronavirus NL63 Not Detected (Not Detect); Coronavirus OC43 Not Detected (Not Detect); Human Metapneumovirus Not Detected (Not Detect); Human Rhinovirus/Enterovirus Not Detected (Not Detect); Influenza A Subtype 2009 H1 Not Detected (Not Detect); Influenza A Untypeable Not Detected (Not Detect); Influenza B Not Detected (Not Detect); Mycoplasma pneumoniae Not Detected (Not Detect); Parainfluenza Virus 1 Not Detected (Not Detect); Parainfluenza Virus 2 Not Detected (Not Detect); Parainfluenza Virus 3 Not Detected (Not Detect); Parainfluenza Virus 4 Not Detected (Not Detect); Respiratory Syncytial Virus Not Detected (Not Detect)
[2019-02-15 02:24] LABS: Basophils % 0.5 %; Eosinophils % 0.5 %; Hematocrit 31.8 % (37.5-50.1); Hemoglobin 10.6 g/dL (12.9-16.9); Immature Granulocytes % 1.6 % (0-4); Lymphocytes # 2.2 K/mcL (0.6-4.6); Lymphocytes % 35.1 %; Mean Corpuscular HGB Conc 33.3 g/dL (31.6-35.5); Mean Corpuscular Hemoglobin 30.8 pg (28.0-33.3); Mean Corpuscular Volume 92.4 fL (83.0-100.0); Mean Platelet Volume 9.3 fL (9.4-12.4); Monocytes # 0.8 K/mcL (0.0-1.3); Monocytes % 12.7 %; Neutrophils # 3.1 K/mcL (1.6-8.9); Platelet Count 163 K/mcL (140-400); Red Blood Count 3.44 M/mcL (4.19-5.50); Red Cell Distribution Width 13.7 % (11.5-14.5); Segmented Neutrophils % 49.6 %; White Blood Count 6.3 K/mcL (4.3-11.1)
[2019-02-15 02:44] LABS: % Iron Saturation 31 % (20-55); Calcium 8.1 mg/dL (8.6-10.3); Iron 71 mcg/dL (65-175); Magnesium 1.9 mg/dL (1.6-2.6); Potassium 4.9 mEq/L (3.5-5.1); Transferrin 161 mg/dL (203-362)
[2019-02-15 02:58] LABS: Thyroid Stimulating Hormone 3.541 mcIU/mL (0.340-5.600)
[2019-02-15 03:03] LABS: Ferritin 81 ng/mL (20-250)
[2019-02-15 03:09] LABS: Folate 6.3 ng/mL (3.0-16.0)
[2019-02-15] MEDS: *HR* Heparin 5,000 UNIT/ML VIAL SQ SCH ×2 (05:14→18:53)
[2019-02-15] MEDS: Aspirin 325 MG TABLET PO SCH (08:16)
[2019-02-15] MEDS: Isosorbide MONOnitrate (24 HR) 30 MG TAB.ER.24H PO SCH (08:17)
[2019-02-15] MEDS: Carbidopa/Levodopa 25/100 TABLET PO SCH (08:17)
[2019-02-15] MEDS: Furosemide 40 MG TABLET PO SCH (08:17)
[2019-02-15] MEDS: Cyanocobalamin (B-12) 1,000 MCG TABLET PO SCH (08:17)
[2019-02-15] MEDS: PHENobarbitaL 32.4 MG TABLET PO SCH (08:17)
[2019-02-15] MEDS ORDERED: PHENobarbitaL 32.4 MG TABLET PO SCH (18:00)
[2019-02-15] MEDS: 0.9 % Sodium Chloride 1,000 ML IVC SCH (19:22)
[2019-02-16] MEDS: *HR* Heparin 5,000 UNIT/ML VIAL SQ SCH (05:17)
[2019-02-16 06:17] LABS: Basophils # 0.1 K/mcL (0.0-0.2); Basophils % 0.8 %; Eosinophils % 0.2 %; Hematocrit 33.8 % (37.5-50.1); Hemoglobin 11.2 g/dL (12.9-16.9); Immature Granulocytes % 1.1 % (0-4); Lymphocytes # 1.9 K/mcL (0.6-4.6); Lymphocytes % 30.6 %; Mean Corpuscular HGB Conc 33.1 g/dL (31.6-35.5); Mean Corpuscular Hemoglobin 30.8 pg (28.0-33.3); Mean Corpuscular Volume 92.9 fL (83.0-100.0); Mean Platelet Volume 9.5 fL (9.4-12.4); Monocytes # 0.6 K/mcL (0.0-1.3); Monocytes % 9.8 %; Neutrophils # 3.6 K/mcL (1.6-8.9); Platelet Count 173 K/mcL (140-400); Red Blood Count 3.64 M/mcL (4.19-5.50); Red Cell Distribution Width 13.2 % (11.5-14.5); Segmented Neutrophils % 57.5 %; White Blood Count 6.2 K/mcL (4.3-11.1)
[2019-02-16 06:34] LABS: BUN/Creatinine Ratio 34 (6-26); Blood Urea Nitrogen 42 mg/dL (8-23); Carbon Dioxide 24 mEq/L (23-29); Chloride 103 mEq/L (98-107); Glucose 87 mg/dL (70-105); Magnesium 1.9 mg/dL (1.6-2.6); Osmolality,Calculated 296 (280-300); Potassium 4.7 mEq/L (3.5-5.1); Sodium 138 mEq/L (136-145); eGFR For African Americans > 60 (> 60); eGFR For Non-African Americans 57 (> 60)
[2019-02-16] MEDS: Isosorbide MONOnitrate (24 HR) 30 MG TAB.ER.24H PO SCH (09:08)
[2019-02-16] MEDS: Cyanocobalamin (B-12) 1,000 MCG TABLET PO SCH (09:08)
[2019-02-16] MEDS: PHENobarbitaL 32.4 MG TABLET PO SCH (09:08)
[2019-02-16] MEDS: Furosemide 40 MG TABLET PO SCH (09:08)
[2019-02-16] MEDS: Aspirin 325 MG TABLET PO SCH (09:08)
[2019-02-16] MEDS: Carbidopa/Levodopa 25/100 TABLET PO SCH (09:08)
[2019-02-16 11:24] VITALS: BP 143/77
== END 2019-02-16 13:33 | disposition home or self-care (01) ==
LOC: 3BNU 13:04 → EMEROOARM 13:04 → SUATTDRO 16:34 → 3BNU 17:56
PROVIDERS: ADMIT Pharmacist; ATTEND Pharmacist

== ENCOUNTER 2020-04-29 08:58 | Inpatient (IN) ==
[2020-04-29] MEDS ORDERED: Isovue-370 500 ML BOTTLE IVP ONE (09:11)
[2020-04-29] MEDS ORDERED: Furosemide 40 MG/4 ML VIAL IVP ONE (09:11)
[2020-04-29 09:32] LABS: Basophils # 0.1 K/mcL (0.0-0.2); Basophils % 0.6 %; Eosinophils # 0.3 K/mcL (0.0-0.6); Hematocrit 40.6 % (37.5-50.1); Hemoglobin 13.2 g/dL (12.9-16.9); Immature Granulocytes % 0.6 % (0-4); Lymphocytes # 5.3 K/mcL (0.6-4.6); Mean Corpuscular HGB Conc 32.5 g/dL (31.6-35.5); Mean Corpuscular Hemoglobin 31.3 pg (28.0-33.3); Mean Corpuscular Volume 96.2 fL (83.0-100.0); Mean Platelet Volume 10.7 fL (9.4-12.4); Monocytes # 1.6 K/mcL (0.0-1.3); Monocytes % 12.4 %; Neutrophils # 5.9 K/mcL (1.6-8.9); Platelet Count 169 K/mcL (140-400); Red Blood Count 4.22 M/mcL (4.19-5.50); Red Cell Distribution Width 13.7 % (11.5-14.5); Segmented Neutrophils % 44.4 %; White Blood Count 13.2 K/mcL (4.3-11.1)
[2020-04-29 09:39] LABS: INR 1.1; Prothrombin Time 12.2 Seconds (9.4-12.1)
[2020-04-29] MEDS ORDERED: *HR* Midazolam HCl 2 MG/2 ML VIAL IVP ONE (09:55)
[2020-04-29] MEDS ORDERED: *HR* Heparin 5,000 UNIT/ML VIAL SQ ONE (09:55)
[2020-04-29] MEDS ORDERED: *HR* Heparin 5,000 UNIT/ML VIAL IVP ONE (10:03)
[2020-04-29 10:06] LABS: Alanine Aminotransferase 87 Units/L (7-52); Albumin 4.3 g/dL (3.5-5.7); Albumin/Globulin Ratio 1.4 (1.1-2.2); Alkaline Phosphatase 194 Units/L (34-104); Aspartate Amino Transferase 76 Units/L (13-39); BUN/Creatinine Ratio 34 (6-26); Bilirubin,Direct 0.1 mg/dL (0.0-0.2); Bilirubin,Indirect 0.4 mg/dL (0.0-1.0); Bilirubin,Total 0.5 mg/dL (0.3-1.0); Blood Urea Nitrogen 40 mg/dL (8-23); Calcium 8.7 mg/dL (8.6-10.3); Carbon Dioxide 20 mEq/L (23-29); Chloride 106 mEq/L (98-107); Glucose 182 mg/dL (70-105); Osmolality,Calculated 298 (280-300); Sodium 137 mEq/L (136-145); Total Protein 7.3 g/dL (6.4-8.9); eGFR For African Americans > 60 (> 60); eGFR For Non-African Americans > 60 (> 60)
[2020-04-29] MEDS ORDERED: 0.9 % Sodium Chloride 1,000 ML ONE ×3 (10:42→20:32)
[2020-04-29] MEDS ORDERED: Heparin 1,000 UNITS/500 mL 500 ML ONE ×3 (10:43→11:54)
[2020-04-29] MEDS ORDERED: Nitroglycerin 1,000 MCG/10 ML VIAL IV ONE (10:43)
[2020-04-29] MEDS ORDERED: *HR* Heparin 10,000 UNIT/10 ML VIAL ONE (10:43)
[2020-04-29] MEDS ORDERED: ISOVUE-370 200 ML INFUS..BTL ONE ×2 (10:43→10:48)
[2020-04-29] MEDS ORDERED: *HR* Midazolam HCl 5 MG/ML VIAL IVP ONE (10:45)
[2020-04-29] MEDS ORDERED: Artificial Tears SOLN 15 ML BOTTLE BOTH EYES PRN (11:00)
[2020-04-29 11:11] LABS: Adenovirus Not Detected (Not Detect); Bordetella Pertussis Not Detected (Not Detect); Chlamydophila pneumoniae Not Detected (Not Detect); Coronavirus 229E Not Detected (Not Detect); Coronavirus HKU1 Not Detected (Not Detect); Coronavirus NL63 Not Detected (Not Detect); Coronavirus OC43 Not Detected (Not Detect); Human Metapneumovirus Not Detected (Not Detect); Human Rhinovirus/Enterovirus Not Detected (Not Detect); Influenza A Subtype 2009 H1 Not Detected (Not Detect); Influenza B Not Detected (Not Detect); Mycoplasma pneumoniae Not Detected (Not Detect); Parainfluenza Virus 1 Not Detected (Not Detect); Parainfluenza Virus 2 Not Detected (Not Detect); Parainfluenza Virus 3 Not Detected (Not Detect); Parainfluenza Virus 4 Not Detected (Not Detect); Respiratory Syncytial Virus Not Detected (Not Detect); SARS-CoV-2 Not Detected (Not Detect)
[2020-04-29] MEDS ORDERED: Perflutren Lipid Microsphere 1.3 ML in 0.9 % Sodium Chloride 8.7 ML IVP PRN (11:36)
[2020-04-29] MEDS ORDERED: *HR* Heparin 5,000 UNIT/ML VIAL IVP PRN ×2 (12:41)
[2020-04-29 13:05] LABS: ABG Base Excess -1 mEq/L (-2 to 3); ABG HCO3 24 mEq/L (21-27); ABG Oxygen Saturation 100 % (95-98); ABG PCO2 40 mmHg (35-45); ABG PH 7.39 pH Units (7.32-7.45); ABG PO2 200 mmHg (85-104); ABG TCO2 25 mEq/L (20-26); Blood Gas Modality AF; Blood Gas VT 500 cc
[2020-04-29] MEDS: Chlorhexidine Rinse 15 ML MOUTHWASH MM SCH ×2 (13:09→20:49)
[2020-04-29] MEDS: Midazolam HCl 50 MG/100 ML IV.SOLN IVC SCH ×2 (13:14→21:46)
[2020-04-29] MEDS: FentaNYL (PF) 1,000 MCG/100 ML IV.SOLN IVC SCH ×2 (13:17→20:27)
[2020-04-29 13:33] LABS: INR 1.2; Prothrombin Time 13.4 Seconds (9.4-12.1)
[2020-04-29 13:38] LABS: Hematocrit 36.6 % (37.5-50.1); Hemoglobin 12.2 g/dL (12.9-16.9); Mean Corpuscular HGB Conc 33.3 g/dL (31.6-35.5); Mean Corpuscular Hemoglobin 31.5 pg (28.0-33.3); Mean Corpuscular Volume 94.6 fL (83.0-100.0); Mean Platelet Volume 10.7 fL (9.4-12.4); Platelet Count 131 K/mcL (140-400); Red Blood Count 3.87 M/mcL (4.19-5.50); Red Cell Distribution Width 13.6 % (11.5-14.5); White Blood Count 10.2 K/mcL (4.3-11.1)
[2020-04-29 13:40] LABS: Heparin anti-factor XA UFH 1.6 IU/mL (0.30-0.70)
[2020-04-29] MEDS: Heparin 25,000UNIT/250ML 1/2NS 25,000 UNIT/250 ML IV.SOLN IVC SCH ×2 (13:53→18:35)
[2020-04-29] MEDS: Artificial Tears SOLN 15 ML BOTTLE BOTH EYES SCH ×4 (14:52→23:12)
[2020-04-29] MEDS: Norepinephrine 4 MG/254 ML IV.SOLN IVC SCH (15:56)
[2020-04-29] MEDS ORDERED: Phenytoin 100 MG in Equashield Syringe 1 EACH IVP SCH (17:30)
[2020-04-29] MEDS: PHENobarbital Elixir 20 MG/5 ML UDC GTUBE SCH (18:33)
[2020-04-29] MEDS: Phenytoin Oral Susp 100 MG/4 ML UDC GTUBE SCH ×2 (18:33→23:12)
[2020-04-29] MEDS ORDERED: *HR* Succinylcholine 200 MG/10 ML VIAL IVP ONE (21:34)
[2020-04-29] MEDS ORDERED: *HR* Etomidate 40 MG/20 ML VIAL IVP ONE (21:34)
[2020-04-29 22:05] LABS: ABG Base Excess -9 mEq/L (-2 to 3); ABG HCO3 22 mEq/L (21-27); ABG Oxygen Saturation 93 % (95-98); ABG PCO2 70 mmHg (35-45); ABG PO2 94 mmHg (85-104); ABG TCO2 24 mEq/L (20-26); Blood Gas Modality ASSIST CONTROL; Blood Gas VT 500 cc
[2020-04-29 23:54] LABS: Magnesium 1.8 mg/dL (1.6-2.6)
[2020-04-30] MEDS: Norepinephrine 4 MG/254 ML IV.SOLN IVC SCH (02:24)
[2020-04-30] MEDS: FentaNYL (PF) 2,500 MCG/50 ML IV.SOLN IVC SCH ×2 (03:03→14:07)
[2020-04-30] MEDS: Artificial Tears SOLN 15 ML BOTTLE BOTH EYES SCH ×4 (03:17→16:09)
[2020-04-30] MEDS: Phenytoin Oral Susp 100 MG/4 ML UDC GTUBE SCH ×3 (04:55→17:29)
[2020-04-30] MEDS ORDERED: Furosemide 40 MG/4 ML VIAL IVP ONE ×3 (05:06→21:00)
[2020-04-30 05:09] LABS: ABG Base Excess -2 mEq/L (-2 to 3); ABG HCO3 24 mEq/L (21-27); ABG Oxygen Saturation 95 % (95-98); ABG PCO2 44 mmHg (35-45); ABG PH 7.34 pH Units (7.32-7.45); ABG PO2 79 mmHg (85-104); ABG TCO2 25 mEq/L (20-26); Blood Gas Modality AF; Blood Gas VT 500 cc
[2020-04-30 05:19] LABS: VBG Ionized Calcium 1.05 mmol/L (1.15-1.35)
[2020-04-30 05:26] LABS: Basophils # 0.1 K/mcL (0.0-0.2); Basophils % 0.5 %; Eosinophils % 0.4 %; Hematocrit 33.6 % (37.5-50.1); Hemoglobin 11.2 g/dL (12.9-16.9); Immature Granulocytes % 0.6 % (0-4); Lymphocytes # 2.2 K/mcL (0.6-4.6); Mean Corpuscular HGB Conc 33.3 g/dL (31.6-35.5); Mean Corpuscular Hemoglobin 31.4 pg (28.0-33.3); Mean Corpuscular Volume 94.1 fL (83.0-100.0); Mean Platelet Volume 10.7 fL (9.4-12.4); Monocytes # 1.3 K/mcL (0.0-1.3); Neutrophils # 6.6 K/mcL (1.6-8.9); Platelet Count 112 K/mcL (140-400); Red Blood Count 3.57 M/mcL (4.19-5.50); Red Cell Distribution Width 13.6 % (11.5-14.5); Segmented Neutrophils % 64.5 %; White Blood Count 10.3 K/mcL (4.3-11.1)
[2020-04-30] MEDS: Midazolam HCl 50 MG/100 ML IV.SOLN IVC SCH (05:47)
[2020-04-30 06:02] LABS: BUN/Creatinine Ratio 31 (6-26); Blood Urea Nitrogen 36 mg/dL (8-23); Calcium 7.7 mg/dL (8.6-10.3); Carbon Dioxide 23 mEq/L (23-29); Chloride 108 mEq/L (98-107); Chol/HDL Ratio 2.3 (0-4.9); Cholesterol 129 mg/dL (< 200); Glucose 124 mg/dL (70-105); HDL Cholesterol 55 mg/dL (40-59); LDL Cholesterol,Calculated 61 mg/dL (< 100); Magnesium 1.8 mg/dL (1.6-2.6); Osmolality,Calculated 298 (280-300); Sodium 139 mEq/L (136-145); Triglycerides 67 mg/dL (< 150); Troponin I 15.93 ng/mL (< 0.04); eGFR For African Americans > 60 (> 60); eGFR For Non-African Americans > 60 (> 60)
[2020-04-30] MEDS: Calcium Gluconate 1gm/50mL 1 GM/50 ML BAG IVPB PRN ×2 (06:07→06:34)
[2020-04-30] MEDS: Chlorhexidine Rinse 15 ML MOUTHWASH MM SCH (08:37)
[2020-04-30] MEDS ORDERED: Carbidopa/Levodopa 25/100 TABLET PO SCH (09:00)
[2020-04-30] MEDS ORDERED: PHENobarbital Elixir 20 MG/5 ML UDC GTUBE SCH (09:00)
[2020-04-30] MEDS ORDERED: Pantoprazole 40 MG VIAL IVP SCH (09:00)
[2020-04-30] MEDS ORDERED: Amiodarone Premix 360 MG/200 ML BAG IVC ONE (10:08)
[2020-04-30] MEDS ORDERED: Amiodarone Premix 150 MG/100 ML BAG IVPB ONE (10:08)
[2020-04-30] MEDS ORDERED: Dexmedetomidine HCl 400 MCG/100 ML MLS IVC SCH (10:30)
[2020-04-30] MEDS ORDERED: Amiodarone Premix 360 MG/200 ML BAG IVC SCH (16:08)
[2020-04-30] MEDS: PHENobarbital Elixir 20 MG/5 ML UDC GTUBE SCH (17:29)
[2020-04-30] MEDS: Heparin 25,000UNIT/250ML 1/2NS 25,000 UNIT/250 ML IV.SOLN IVC SCH (17:59)
[2020-04-30 20:40] VITALS: BP 84/56
[2020-04-30 21:01] LABS: VBG Ionized Calcium 1.05 mmol/L (1.15-1.35)
[2020-04-30 21:07] LABS: BUN/Creatinine Ratio 26 (6-26); Blood Urea Nitrogen 33 mg/dL (8-23); Calcium 7.9 mg/dL (8.6-10.3); Carbon Dioxide 24 mEq/L (23-29); Chloride 103 mEq/L (98-107); Glucose 120 mg/dL (70-105); Magnesium 1.7 mg/dL (1.6-2.6); Osmolality,Calculated 292 (280-300); Phosphorous 3.1 mg/dL (2.7-4.5); Potassium 3.6 mEq/L (3.5-5.1); Sodium 137 mEq/L (136-145); eGFR For African Americans > 60 (> 60); eGFR For Non-African Americans 57 (> 60)
== END 2020-04-30 21:35 | disposition short-term general hospital (02) | DRG 270 ==
LOC: EMEROOARM 08:58 → ICNU 10:50
PROVIDERS: ADMIT Internal Medicine; ATTEND Internal Medicine